=== PATIENT | male | born 1970 | race Caucasian/White ===

== ENCOUNTER 2025-09-19 11:09 | Emergency (ER) | payer OTHER ==
[2025-09-19 11:24] VITALS: BP 136/75; PULSE 64
[2025-09-19] MEDS: Take Home: Acetaminophen/HYDROcodone 325-5 MG, 5 Tab Pack PO ONE (12:59)
== END 2025-09-19 13:07 | disposition home or self-care (01) ==
LOC: VM.ED 11:09
DX: S23.29XA Dislocation of other parts of thorax, initial encounter (principal); I10 Essential (primary) hypertension; Z79.899 Other long term (current) drug therapy; W09.8XXA Fall on or from other playground equipment, initial encounter; Y93.89 Activity, other specified
CPT/HCPCS: 71101; 99283; 99284; A9270